=== PATIENT | male | born 1955 | race Caucasian/White ===

== ENCOUNTER → 2018-03-15 | Outpatient (CLI) | payer SELFPAY ==
[~2018-03-15] MED LIST: AMOX-559 PO; ASCO-244 PO; ASCO-599 PO; ASPI-1471 PO; ASPI-879 PO; B CO1CAP; CALC-595 PO; CALC-854 PO; CALC200; CLAD PO; CPAP; DONE10TA38 PO; ENO40I SQ; FISH1CAP15; FOL1 PO; GARL10004; GARL1CAP15 PO; GLUC1TAB13 PO; GLUC1TAB2 PO; LMFO1TAB PO; LORA1TAB69 PO; OMEG-11 PO; OSTEO BIFLEX; OXYGENHOME INH; PNEU0.5D3 IM; SODI1PAC NS; TES75PMPPT TOP; TEST1.25 TD; TOPI50TA92 PO; VILA20TA PO; VILA40TA PO; VITA-175 PO; VITA-197 PO; VITE400 PO; WAR5 PO; [UNRECOGNIZED DRUG - CODE]; [UNRECOGNIZED DRUG - CODE] PO
[2018-03-15 14:04] LABS: PLATELET COUNT, AUTOMATED 144 K/uL (150-450)
== END ==
LOC: LAB 13:45
PROVIDERS: ATTEND Internal Medicine
DX: R19.7 Diarrhea, unspecified (principal)
CPT/HCPCS: 36415; 82040; 82247; 82274; 82310; 82374; 82435; 82565; 82947; 83516; 83630; 84075; 84132; 84155; 84295; 84443; 84450; 84460; 84520; 85025; 87045; 87177; 87269; 87324; 87449